=== PATIENT | female | born 1990 | race Hispanic/Latino ===

== ENCOUNTER 2017-12-11 01:54 | Emergency (ER) | payer SELFPAY ==
--- NOTE | 2017-12-11 02:40 | ER ---
Nurse's Notes [facility] Name: Lelia Herrera Age: 27 yrs Sex: Female : 1990 Arrival Date: 12/11/2017 Time: 01:59 Bed 14 Private MD: Diagnosis: Traumatic rupture of right tympanic membrane Presentation: 12/11 02:06 Presenting complaint: Patient states: that she was dry her ear with a q-tip and when fc the towel on her head was falling she went to catch it and stuck the q-tip further in her right ear. Ear is now painful and bleeding. Care prior to arrival: Bleeding of injury controlled. 02:06 Acuity: EN 4 fc 02:06 Method Of Arrival: Ambulatory fc 02:08 Transition of care: patient was not received from another setting of care. Onset of fc symptoms was December 11, 2017 at 01:00. 02:55 Initial Sepsis Screen: Does the patient meet any 2 criteria? No. Patient's initial jd3 sepsis screen is negative. Does the patient have a suspected source of infection? No. Patient's initial sepsis screen is negative. 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 - Social history:: Smoking status: Patient uses tobacco products, denies chronic smoking, but will smoke occasionally. Screenin:10 Abuse screen: Denies threats or abuse. Nutritional screening: No deficits noted. fc Tuberculosis screening: No symptoms or risk factors identified. Fall Risk None identified. Assessment: 02:53 General: Appears in no apparent distress. uncomfortable, Behavior is calm, cooperative, jd3 appropriate for age. Pain: Complains of pain in right ear Quality of pain is described as sharp. Neuro: Level of Consciousness is awake, alert, obeys commands, Oriented to person, place, time, situation. Cardiovascular: Capillary refill < 3 seconds Patient's skin is warm and dry. Respiratory: Airway is patent Respiratory effort is even, unlabored, Respiratory pattern is regular, symmetrical. GI: No signs and/or symptoms were reported involving the gastrointestinal system. : No signs and/or symptoms were reported regarding the genitourinary system. EENT: Ear canal w/ bleeding noted from right ear. Derm: Skin is intact, Skin is dry, Skin is normal, Skin temperature is warm. Musculoskeletal: Circulation, motion, and sensation intact. Range of motion: intact in all extremities. 03:00 Reassessment: Patient appears in no apparent distress at this time. Patient and/or jd3 family updated on plan of care and expected duration. Pain level reassessed. Patient is alert, oriented x 3, equal unlabored respirations, skin warm/dry/pink. pt reported understanding of discharge instructions, even and steady gait upon discharge. Vital Signs: 02:10 BP 109 / 74; Pulse 74; Resp 18; Temp 98.7(O); Pulse Ox 100% on R/A; Weight 58.97 kg fc (R); Height 5 ft. 2 in. (157.48 cm) (R); Pain 1/10; 02:10 Body Mass Index 23.78 (58.97 kg, 157.48 cm) ED Course: 01:59 Patient arrived in ED. al2 02:08 Triage completed. fc 02:10 Arm band placed on Patient placed in an exam room, on a stretcher. fc 02:10 Patient has correct armband on for positive identification. Bed in low position. Call light in reach. 02:14 Travis Montague MD is Attending Physician. pkl 02:32 Chastity Small FNP-C is PHCP. snw 02:38 Lo Mark MD is Referral Physician. snw 02:53 David Martinez RN is Primary Nurse. jd3 02:55 No provider procedures requiring assistance completed. Patient did not have IV access jd3 during this emergency room visit. Administered Medications: 02:54 Drug: Cortisporin Drops 4 drops Route: Otic; Site: right ear; jd3 02:55 Follow up: Response: Medication administered at discharge. jd3 02:55 Drug: Troy 5 mg-325 mg 1 tabs Route: PO; jd3 02:55 Follow up: Response: Medication administered at discharge. jd3 02:55 Drug: Zofran 4 mg Route: PO; jd3 02:55 Follow up: Response: Medication administered at discharge. jd3 Outcome: 02:40 Discharge ordered by . judah 03:00 Discharged to home ambulatory, with family. jd3 03:00 Condition: stable 03:00 Discharge instructions given to patient, family, Instructed on discharge instructions, follow up and referral plans. medication usage, Demonstrated understanding of instructions, follow-up care, medications, Prescriptions given X 2. 03:01 Patient left the ED. jd3 Signatures: Travis Montague MD MD pkl Therrien, Shelly, CORRESPONDENCE ANALYST-C CORRESPONDENCE ANALYST-Csnw Betty Ortiz, RN RN David Woods RN RN brandi Reyes, Brenda escalante
--- NOTE | 2017-12-11 02:41 | EDPHYS ---
Physician Documentation [facility] Name: Lelia Herrera Age: 27 yrs Sex: Female : 1990 Arrival Date: 12/11/2017 Time: 01:59 Bed 14 Private MD: ED Physician Travis Montague HPI: 12/11 02:32 This 27 yrs old Female presents to ER via Ambulatory with complaints of Ear snw Injury. 02:32 The patient presents with pain, severe. The complaints affect the right ear. Onset: The snw symptoms/episode began/occurred suddenly, just prior to arrival. Modifying factors: The symptoms are alleviated by nothing. Severity of symptoms: At their worst the symptoms were moderate. The patient has not experienced similar symptoms in the past. It is unknown whether or not the patient has recently seen a physician. drying ear with q-tip and it went in too far. 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 - Social history:: Smoking status: Patient uses tobacco products, denies chronic smoking, but will smoke occasionally. ROS: 02:32 Constitutional: Negative for fever, chills, and weight loss, Eyes: Negative for injury, snw pain, redness, and discharge, Neck: Negative for injury, pain, and swelling, Cardiovascular: Negative for chest pain, palpitations, and edema, Respiratory: Negative for shortness of breath, cough, wheezing, and pleuritic chest pain, Abdomen/GI: Negative for abdominal pain, nausea, vomiting, diarrhea, and constipation, Back: Negative for injury and pain, : Negative for injury, bleeding, discharge, and swelling, MS/Extremity: Negative for injury and deformity, Skin: Negative for injury, rash, and discoloration, Neuro: Negative for headache, weakness, numbness, tingling, and seizure, Psych: Negative for depression, anxiety, suicide ideation, homicidal ideation, and hallucinations. 02:32 ENT: Positive for ear pain, of the right ear. Exam: 02:37 Constitutional: This is a well developed, well nourished patient who is awake, alert, snw and in no acute distress. Head/Face: Normocephalic, atraumatic. Eyes: Pupils equal round and reactive to light, extra-ocular motions intact. Lids and lashes normal. Conjunctiva and sclera are non-icteric and not injected. Cornea within normal limits. Periorbital areas with no swelling, redness, or edema. Neck: Trachea midline, no thyromegaly or masses palpated, and no cervical lymphadenopathy. Supple, full range of motion without nuchal rigidity, or vertebral point tenderness. No Meningismus. Chest/axilla: Normal chest wall appearance and motion. Nontender with no deformity. No lesions are appreciated. Cardiovascular: Regular rate and rhythm with a normal S1 and S2. No gallops, murmurs, or rubs. Normal PMI, no JVD. No pulse deficits. Respiratory: Lungs have equal breath sounds bilaterally, clear to auscultation and percussion. No rales, rhonchi or wheezes noted. No increased work of breathing, no retractions or nasal flaring. Abdomen/GI: Soft, non-tender, with normal bowel sounds. No distension or tympany. No guarding or rebound. No evidence of tenderness throughout. Back: No spinal tenderness. No costovertebral tenderness. Full range of motion. Skin: Warm, dry with normal turgor. Normal color with no rashes, no lesions, and no evidence of cellulitis. MS/ Extremity: Pulses equal, no cyanosis. Neurovascular intact. Full, normal range of motion. Neuro: Awake and alert, GCS 15, oriented to person, place, time, and situation. Cranial nerves II-XII grossly intact. Motor strength 5/5 in all extremities. Sensory grossly intact. Cerebellar exam normal. Normal gait. 02:37 ENT: External ear(s): are unremarkable, Ear canal(s): blood in canal, TM's: rupture, on the right, with bloody discharge, Nose: is normal, Mouth: is normal, Posterior pharynx: is normal, Dental exam: normal. Vital Signs: 02:10 BP 109 / 74; Pulse 74; Resp 18; Temp 98.7(O); Pulse Ox 100% on R/A; Weight 58.97 kg fc (R); Height 5 ft. 2 in. (157.48 cm) (R); Pain 08/17; 02:10 Body Mass Index 23.78 (58.97 kg, 157.48 cm) fc MDM: 02:14 Patient medically screened. pkl 02:42 Data reviewed: vital signs, nurses notes. Data interpreted: Pulse oximetry: on room air snw is 100 %. Interpretation: normal. Counseling: I had a detailed discussion with the patient and/or guardian regarding: the historical points, exam findings, and any diagnostic results supporting the discharge/admit diagnosis, the need for outpatient follow up, to return to the emergency department if symptoms worsen or persist or if there are any questions or concerns that arise at home. Special discussion: Based on the history and exam findings, there is no indication for further emergent testing or inpatient evaluation. I discussed with the patient/guardian the need to see the ENT specialist for further evaluation of the symptoms. I discussed with the patient/guardian the need to see the primary care provider for further evaluation of the symptoms. Administered Medications: 02:54 Drug: Cortisporin Drops 4 drops Route: Otic; Site: right ear; jd3 02:55 Follow up: Response: Medication administered at discharge. jd3 02:55 Drug: [place] 5 mg-325 mg 1 tabs Route: PO; jd3 02:55 Follow up: Response: Medication administered at discharge. jd3 02:55 Drug: Zofran 4 mg Route: PO; jd3 02:55 Follow up: Response: Medication administered at discharge. jd3 Disposition: 05:23 Co-signature as Attending Physician, Travis Montague MD. pkl Disposition: 12/11/17 02:40 Discharged to Home. Impression: Traumatic rupture of right tympanic membrane. - Condition is Stable. - Discharge Instructions: Eardrum Perforation, Ear Drops, Adult, Tympanoplasty, Care After. - Prescriptions for Diclofenac Sodium 75 mg Oral Tablet Sustained Release - take 1 tablet by ORAL route 2 times per day; 30 tablet. Ciprodex 0.3- 0.1 % Otic Drops, Suspension - instill 4 drop by OTIC route every 12 hours for 7 days , for ears ONLY; 1 Container. - Medication Reconciliation Form, Thank You Letter, Antibiotic Education, Prescription Opioid Use form. - Follow up: Private Physician; When: 2 - 3 days; Reason: Recheck today's complaints, Continuance of care, Re-evaluation by your physician. Follow up: Lo Mark MD; When: 1 week; Reason: Recheck today's complaints, Continuance of care. Signatures: Travis Montague MD MD pkl Therrien, Shelly, BODY ENGINEER-C BODY ENGINEER-Csnw Betty Ortiz, RN RN fc David Martinez RN RN jd3 Corrections: (The following items were deleted from the chart) 03:01 02:40 12/11/2017 02:40 Discharged to Home. Impression: Traumatic rupture of right jd3 tympanic membrane. Condition is Stable. Forms are Medication Reconciliation Form, Thank You Letter, Antibiotic Education, Prescription Opioid Use. Follow up: Private Physician; When: 2 - 3 days; Reason: Recheck today's complaints, Continuance of care, Re-evaluation by your physician. Follow up: Lo Mark; When: 1 week; Reason: Recheck today's complaints, Continuance of care. snw
[2017-12-11] MEDS ORDERED: HYDROCODONE/APAP 5/325 MG TAB ONE (02:47)
[2017-12-11] MEDS ORDERED: ONDANSETRON 4 MG (ODT) TAB ONE (02:48)
[2017-12-11] MEDS ORDERED: NEOMY/POLY/HC 1% OTIC DROPS ONE (02:49)
== END 2017-12-11 03:01 | disposition home or self-care (01) ==
LOC: ER 01:54
DX: S09.21XA Traumatic rupture of right ear drum, initial encounter (principal); Z72.0 Tobacco use
CPT/HCPCS: 99283